=== PATIENT | female | born 1995 | race Asian ===

== ENCOUNTER 2017-08-01 16:06 | Inpatient (IN) | payer BC ==
[2017-08-01 16:55] LABS: ABS Basophils 0.1 10^3/ul (0-0.2); ABS Eosinophils 0.2 10^3/ul (0-0.6); ABS Lymphocytes 2.8 10^3/ul (1.0-4.8); ABS Monocytes 0.5 10^3/ul (0-0.8); ABS Neutrophils 3.8 10^3/ul (1.5-7.7); ABS Nucleated RBC 0 10^3/ul; Eosinophil % 2.1 % (0-6); Hematocrit 41 % (35-47); Hemoglobin 14.2 g/dl (12.0-16.0); Mean Corpuscular HGB Conc 34 g/dl (31-36); Mean Corpuscular Hemoglobin 30 pg (27-31); Mean Corpuscular Volume 86 fL (80-97); Mean Platelet Volume 9.6 um3 (7.4-10.4); Nucleated Red Blood Cells % 0.1; Platelet Count 233 10^3/ul (150-450); Red Blood Count 4.81 10^6/ul (4.0-5.4); Red Cell Distribution Width 13 % (10.5-15); White Blood Count 7.3 10^3/ul (3.5-10.8)
[2017-08-01 17:06] LABS: Urine Appearance Clear; Urine Blood Negative (Negative); Urine Color Yellow; Urine Ketones Negative (Negative); Urine Protein Negative (Negative); Urine Specific Gravity 1.019 (1.010-1.030); Urine Urobilinogen Negative (Negative)
[2017-08-01 17:13] LABS: EGFR Non-African American 76.3 (>60)
--- NOTE | 2017-08-01 21:41 | ED ---
Ania Foster Thomas, scribed for Marcial Vera MD on 08/01/17 at 1631 . Psychiatric Complaint - HPI Summary HPI Summary: The patient is a 22 year old female who is brought in by [place] police 941 after she expressed suicidal ideation with a plan to her counselor. She attempted to hang herself with a belt. She complains of depression. - History Of Current Complaint Chief Complaint: EDMentalHealth Time Seen by Provider: 08/01/17 16:15 Hx Obtained From: Patient Onset/Duration: Still Present Timing: Constant Character: Depressed Aggravating Factor(s): Nothing Alleviating Factor(s): Medication Has Suicidal: Reports: Thoughts, With A Plan - Allergies/Home Medications Allergies/Adverse Reactions: Allergies Allergy/AdvReac Type Severity Reaction Status Date / Time No Known Allergies Allergy Verified 08/01/17 16:11 Home Medications: Home Medications NK [No Home Medications Reported] 08/01/17 [History Confirmed 08/01/17] PMH/Surg Hx/FS Hx/Imm Hx Sensory History: Denies: Hx Legally Blind Psychiatric History: Reports: Hx Anxiety, Hx Depression Infectious Disease History: No Infectious Disease History: Denies: Traveled Outside the [place] in Last 30 Days - Family History Known Family History: Positive: Other - Patient denies relevant FHx - Social History Alcohol Use: None Substance Use Type: Reports: None Smoking Status (MU): Never Smoked Tobacco Review of Systems Negative: Fever Positive: Other - SI, depression All Other Systems Reviewed And Are Negative: Yes Physical Exam - Summary Physical Exam Summary: General: well-appearing, no pain distress Skin: warm, color reflects adequate perfusion, dry Head: normal Eyes: EOMI, TUNDE ENT: normal Neck: supple, nontender Respiratory: CTA, breath sounds present Cardiovascular: RRR Abdomen: soft, nontender Bowel: present Musculoskeletal: normal, strength/ROM intact Neurological: normal, sensory/motor intact, A&O x3 Psychological: affect/mood appropriate Triage Information Reviewed: Yes Vital Signs On Initial Exam: Initial Vitals Temp Pulse Resp BP Pulse Ox 98.7 F 67 16 155/93 95 08/01/17 16:09 08/01/17 16:09 08/01/17 16:09 08/01/17 16:09 08/01/17 16:09 Vital Signs Reviewed: Yes Diagnostics - Vital Signs Vital Signs Temp Pulse Resp BP Pulse Ox 08/01/17 16:09 98.7 F 67 16 155/93 95 - Laboratory Result Diagrams: 08/01/17 16:47 08/01/17 16:47 Lab Statement: Any lab studies that have been ordered have been reviewed, and results considered in the medical decision making process. Course/Dx - Course Assessment/Plan: MHE and disposition are pending at shift change. Patient is signed out to Dr. Delgadillo. - Differential Dx/Clinical Impression Provider Diagnosis: Mental health problem Discharge - Sign-Out/Discharge Documenting (check all that apply): Sign-Out Patient Signing out patient TO: Anmol Delgadillo - Discharge Plan Condition: Stable Disposition: [facility]YCHIATRIC FACILITY-[facility] [place] The documentation as recorded by the Ania dougherty Thomas accurately reflects the service I personally performed and the decisions made by me, Marcial Vera MD.
--- NOTE | 2017-08-02 08:08 | PN ---
ED Flex Patient Progress Note Subjective: This is a 22 year-old F who is pending psychiatric EVAL secondary to ____SI w/ attempt to hang herself . Pt offers no complaints at this time. Objective: Vitals: Most recent vital signs documented below. General NAD, Alert and oriented x3. HEENT: no signs of ecchymosis about neck Heart: rrr S1,S2 Lungs: CTA, BREATHING EASILY, no stridor Ab: soft, NTTP, + BS Assessment: Suicide attempt Plan: Pending psychiatric eval. will follow up daily _ while in ED____. Vital Signs Temp Pulse Resp BP Pulse Ox 98.0 F 74 16 128/87 99 08/02/17 06:32 08/02/17 06:32 08/02/17 06:32 08/02/17 06:32 08/02/17 06:32 Lab Results - Entire Visit 08/01/17 08/01/17 08/01/17 16:52 16:52 16:47 WBC RBC Hgb Hct MCV MCH MCHC RDW Plt Count MPV Neut % (Auto) Lymph % (Auto) [place] % (Auto) Eos % (Auto) Baso % (Auto) Absolute Neuts (auto) Absolute Lymphs (auto) Absolute Monos (auto) Absolute Eos (auto) Absolute Basos (auto) Absolute Nucleated RBC Nucleated RBC % Sodium 140 Potassium 4.2 Chloride 105 Carbon Dioxide 27 Anion Gap 8 BUN 13 Creatinine 0.92 Est GFR ( Amer) 98.2 Est GFR (Non-Af Amer) 76.3 BUN/Creatinine Ratio 14.1 Glucose 95 Calcium 9.2 Total Bilirubin 0.80 AST 16 ALT 14 Alkaline Phosphatase 65 Total Protein 6.9 Albumin 4.0 Globulin 2.9 Albumin/Globulin Ratio 1.4 TSH 2.67 Urine Color Yellow Urine Appearance Clear Urine pH 5.0 Ur Specific [place] 1.019 Urine Protein Negative Urine Ketones Negative Urine Blood Negative Urine Nitrate Negative Urine Bilirubin Negative Urine Urobilinogen Negative Ur Leukocyte Esterase Negative Urine Glucose Negative Salicylates < 2.50 Urine Opiates Screen None detected Acetaminophen < 15 Ur Barbiturates Screen None detected Ur Phencyclidine Scrn None detected Ur Amphetamines Screen None detected U Benzodiazepines Scrn None detected Urine Cocaine Screen None detected U Cannabinoids Screen Presumptive positive A Serum Alcohol < 10 08/01/17 16:47 WBC 7.3 RBC 4.81 Hgb 14.2 Hct 41 MCV 86 MCH 30 MCHC 34 RDW 13 Plt Count 233 MPV 9.6 Neut % (Auto) 52.0 Lymph % (Auto) 39.0 [place] % (Auto) 6.2 Eos % (Auto) 2.1 Baso % (Auto) 0.7 Absolute Neuts (auto) 3.8 Absolute Lymphs (auto) 2.8 Absolute Monos (auto) 0.5 Absolute Eos (auto) 0.2 Absolute Basos (auto) 0.1 Absolute Nucleated RBC 0 Nucleated RBC % 0.1 Sodium Potassium Chloride Carbon Dioxide Anion Gap BUN Creatinine Est GFR ( Amer) Est GFR (Non-Af Amer) BUN/Creatinine Ratio Glucose Calcium Total Bilirubin AST ALT Alkaline Phosphatase Total Protein Albumin Globulin Albumin/Globulin Ratio TSH Urine Color Urine Appearance Urine pH Ur Specific [place] Urine Protein Urine Ketones Urine Blood Urine Nitrate Urine Bilirubin Urine Urobilinogen Ur Leukocyte Esterase Urine Glucose Salicylates Urine Opiates Screen Acetaminophen Ur Barbiturates Screen Ur Phencyclidine Scrn Ur Amphetamines Screen U Benzodiazepines Scrn Urine Cocaine Screen U Cannabinoids Screen Serum Alcohol
[2017-08-02] MEDS ORDERED: Al Hydrox/Mg Hydrox/Simet LIQ* 30 ML UDC PO PRN (15:11)
[2017-08-02] MEDS ORDERED: Acetaminophen TAB* 325 MG PO PRN (15:11)
--- NOTE | 2017-08-02 15:52 | ED ---
Nathalie Foster Gabriel, scribed for Alex Vallejo MD on 08/02/17 at 1148 . Progress - Progress Note Progress Note: The patient was signed out from Dr. Delgadillo awaiting MHE. After MHE by Dr. oKhli the patient will be a voluntary admit. - Consult/PCP Time Called: 16:46 Course/Dx - Course Course Of Treatment: The patient was signed out from Dr. Delgadillo awaiting MHE. After MHE the patient will be a voluntary admit. - Diagnoses Provider Diagnoses: Suicidal ideation, Unspecified episodic mood disorder Discharge - Sign-Out/Discharge Documenting (check all that apply): Discharge/Admit/Transfer, Receiving Sign-Out Receiving patient FROM: Anmol Delgadillo - Discharge Plan Condition: Stable [place] [place] The documentation as recorded by the Nathalie dougherty Gabriel accurately reflects the service I personally performed and the decisions made by Genevieve isaacs Kirk, MD.
[2017-08-03] MEDS: Vitamin THERAPEUTIC TAB PO SCH (10:12)
[2017-08-03] MEDS: Venlafaxine EXT RELEASE CAP* 37.5 MG PO SCH (14:28)
--- NOTE | 2017-08-03 22:06 | HP ---
HISTORY AND PHYSICAL: DATE OF ADMISSION: 08/02/17 SUPERVISING PSYCHIATRIST: Dr. Jimy Kohli.* (DICTATED BY CASEY CURRIE NP) JUSTIFICATION FOR ADMISSION: The patient met with her [employer] therapist and agreed to be transported to the ED due to suicidal ideation and plan to jump off of a bridge. The patient has history of suicide attempts and has high lethality risk. She merits hospitalization for immediate safety and stabilization. CHIEF COMPLAINT: "Overall, this is a not good semester." HISTORY OF PRESENT ILLNESS: The patient is a 22-year-old Romanian Slovak female and a senior at [employer]. She presented to the emergency department on 08/01/17 after an appointment with her therapist at [facility] due to significant suicidal ideation and a plan. Our unit was full at this time. The patient remained in the emergency department while awaiting an available bed. She was admitted and transported to the Adult BSU on the afternoon of 08/02/17. The patient is originally from [place], [place] and has been a student of [employer] for the last four years. She prefers to go by "Erial." She is a senior and studying in classic languages. She is expected to graduate this month, but is unsure if she is going to pass calculus which she needs for math credit. She states this semester she has had difficulty attending classes due to depressive symptoms. She endorses decreased energy, anhedonia, hypersomnia, and isolation. She also endorses excessive guilt and avoidance in the context of anxiety. She states that she is often afraid of rejection or failure and therefore, she does not engage. For example, she did not applied to a graduate school because she watched her friends with this process and did not want to put herself in that position. She states that this was true for her while she was in high school as well. She did not want to go college. She states she was not expecting to see her 18th birthday and did have an overdose attempt on Tylenol around that time. She states she started vomiting and went to an Urgent Care, but did not tell anybody that that was a suicide attempt and therefore did not receive any mental health services. She identifies 3 suicide attempts since then, twice in her sophomore year at [employer]. She walked to a bridge and then turned around and went home because she was worried and wanted to finish an assignment that was due. While in [place], she thought of jumping in front of a train, but did not do so because she was with a large group of people. Last month, she attempted to hang herself in her dorm room. The patient also reports self injurious behavior via cutting intermittently over the last 5 years. She states the last time she did so was 3 weeks ago. She identifies that she gets relief from stress when she cuts. The patient states that she never wanted to see her 22nd birthday. She explains that this due to having a graduate college and being expected to be "an adult." The patient identifies depressive symptoms since last October but worsening since the onset of this semester. She identifies she is anxious about what to do after graduation. She wants to take a year or two as a gap year, possibly work abroad or volunteer. She states she has a friend whose father works with an [employer] and is considering working for them. The patient denies AV hallucinations. She denies depersonalization. She reports she is superstitious and explains that her right eye has been twitching recently and that in Romanian culture, the right eye is bad luck, but the left eye is good luck. She states that she is an obsessive person when it comes to cleaning and nobody else cleans as well as she does. She denies any other phobias, rituals, or compulsions. The patient denies current eating disorders. She report a history of binge eating approximately 4 years ago. PAST PSYCHIATRIC HISTORY: The patient denies previous psychiatric hospitalization. She has been seeing Rocio Sousa for the past 3 years at [facility]. She also sees psychiatrist, Dr. Shakira Estrada. She denies previous medications other than ones that she is currently prescribed, Lexapro and Wellbutrin. The patient denies history of trauma or abuse. She reports her maternal uncle suddenly related to cancer, but this is more traumatic for her mother and other family members than it was for her. PAST MEDICAL HISTORY: Healthy. The patient denies head injury or seizures. She denies a history of surgeries. ALLERGIES: No known drug allergies. Height 5 feet 4 inches. Weight 204. LMP was the end of May. She reports she historically has regular menses. Denies concern for STIs or . She reports engaging in consensual sexual activity last in November. PRIMARY CARE PROVIDER: [facility]. CURRENT MEDICATIONS: 1. Lexapro 20 mg. 2. Wellbutrin XL 150 mg daily. The patient states she stopped taking this approximately around May due to interrupted sleep, running out of the medicine and not wanting to call and ask for a refill. FAMILY PSYCHIATRIC HISTORY: The patient denies formal diagnosis. She thinks that her father may suffer from depression. Her maternal grandfather suicided when her mother was 5 years old. SOCIAL HISTORY: The patient is the only child of parents of Romanian descent. She is originally from [place], [place] and has been attending [employer] for the past 4 years. She lives alone in a single room. She identifies as heterosexual and is not currently dating. She reports having close friends and is engaged in a few clubs, primarily quiz bowl and classics clubs. She reports liking various television and YouTube shows. She plays fantasy video games such as [employer] and [employer]. The patient reports alcohol use approximately 2 drinks at a time. She reports occasional marijuana use and the last use was last week. She denies tobacco use or other substances. REVIEW OF SYSTEMS: Constitutional: Negative. No fever, chills, or fatigue. ENT: Negative. Cardiovascular: Negative. Denies chest pains or palpitations. Respiratory: Negative. Denies shortness of breath or cough. Genitourinary: Negative. Musculoskeletal: Negative. Neurologic: Negative. PHYSICAL EXAMINATION GENERAL: The patient is well appearing, well nourished. VITAL SIGNS: T 98.2, P 74, respiration rate 16, O2 saturation 99%, BP 124/80. HEENT: Head and face: Normal head and face inspection. The patient is wearing corrective eye glasses. Eyes: Positive EOMI. PERRL. Conjunctivae clear. NECK: Supple. Full ROM. Trachea midline. RESPIRATORY: Lung sounds clear to auscultation, breath sounds present. CARDIOVASCULAR: Heart RRR. Pulses are symmetrical in both upper and lower extremities. MUSCULOSKELETAL: Normal strength, ROM intact. NEUROLOGIC: Normal. Sensory and motor intact. Alert, oriented x3 and normal gait. Cerebellar function intact. Skin: Warm, dry. Color reflects adequate perfusion. MENTAL STATUS EXAM: The patient is a 22-year-old Romanian-Slovak female, who appears stated age. She is adequately groomed. Her ADLs are completed. She is wearing T-shirt and shorts and sits on the bed with an erect posture. She is cooperative and answers questions fully. She appears to be a good historian. She is alert and oriented x3. Concentration is good. Her memory is 3/3. Her mood is dysphoric. Her affect is incongruent with a nervous smile at times. Speech is soft and articulate. Thought process circumstantial in regards to current stressors and content of thought is significant for suicidal ideation and passive wish. Insight and judgment are poor. Fund of knowledge is excellent. LABORATORY DATA: CBC within normal limits. CMP within normal limits. Hemoglobin A1c is 5.6. Triglycerides high at 444. Cholesterol 216. TSH 2.67. Urinalysis within normal limits. Toxicology negative for salicylates, acetaminophen or alcohol. Urine drug screen positive for cannabinoids, which is consistent with patient report. DIAGNOSIS: Major depressive disorder. ASSESSMENT: Katelyn, who prefers to go by Erial, is a 22-year-old female [employer] senior. This is her first psychiatric hospitalization, although she has had multiple suicide attempts. She reports significant stressor of graduating [employer]. She is unsure if she will pass calculus and is even more so unsure about what she will do after graduation. 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 She mentions that her outpatient psychiatrist has discussed switching medications; however, she has not been compliant with current regimen. PLAN: The patient is admitted to adult behavioral services unit on voluntary status. Code status is full. She is placed on 15-minute checks for safety. The patient was encouraged to participate in supportive milieu, individual sessions with staff and psychoeducational groups. We will obtain an MMPI for diagnostic clarification. The patient is agreeable to start venlafaxine 37.5 mg. We will monitor for mood and thought content. Estimated length of stay is 5 to 7 days. Discharge plan will include family involvement, outpatient providers per patient consent. CASEY CURRIE, FRANKY [id number]/[facility] #: [id number] [place]
[2017-08-04] MEDS: Vitamin THERAPEUTIC TAB PO SCH (09:28)
[2017-08-04] MEDS: Venlafaxine EXT RELEASE CAP* 37.5 MG PO SCH (09:28)
--- NOTE | 2017-08-04 16:29 | PN ---
Subjective - Subjective Date of Service: 08/04/17 Service Type: 31124 Hosp care 15 min low complexity Subjective: Patient reports mildly improved mood. She states she has spoken with her mother and received emotional support. She states she told her mother that she would like her father to call but he has not done so yet. Patient reports relief due to speaking with [facility] blogs manager and her Igor. She states that she will be able to graduate. Patient states she is ambivalent about plans after graduation. Objective - Appearance Appearance: Well Developed/Nourished Dysmorphic Features: Yes Hygiene: Normal Grooming: Fairly Well Kept - Behavior Psychomotor Activities: Normal Exhibits Abnormal Movement: No - Attitude and Relatedness Attitude and Relatedness: Cooperative Eye Contact: Fair - Speech Quality: Unpressured Latencies: Normal Quantity: Appropriate - Mood Patient's Decription of Mood: "Okay" - Affect Observed Affect: Depressed - anxious smile at times - Thought Process Patient's Thought Process: Circumstantial, Impoverished Thought Content: Yes Passive Wish, Yes Suicidal Planning, No Homicidal Ideation, No Paranoid Ideation - Sensorium Experiencing Hallucinations: No, Sensorium is Clear Type of Hallucinations: Visual: No, Auditory: No, Command: No - Level of Consciousness Level of Consciousness: Alert Orientation: Yes Intact, Yes Orientated to Time, Yes Orientated to Place, Yes Orientated to Person - Impulse Control Impulse Control: Tenuous - Insight and Judgement Insight and Judgement: Poor - Group Participation Particating in Group Activities: Yes - Medication Management Medication Management Adherence: Yes Assessment - Assessment Merits Inpatient Hospitalization: For Immediate Safety, For Stabilization, Pending Safe DC Plan Inpatient DSM-V Dx: F33.1 Clinical Impression: 22yo yoruba-vincentian female, senior at [employer] who presented to ED after appt at therapist. Patient endorses suicidal ideation with recent failed suicide attempt. She merits hospitalization for immediate safety and stabilization. Plan - Plan Treatment Plan: Name: LYDIA AZUL Birthdate: 1995 [id number] continue acute intensive psychiatric treatment. decrease to q30min observation and allow computer/staff pass. increase effexor XR to 75mg qam. discharge planning to include parents and outpatient providers. Continued Medication Management: Different Medication Medications: Current Medications Acetaminophen (Tylenol Tab*) 650 mg PO Q4H PRN PRN Reason: PAIN or TEMP > 101 F Last Admin: 08/03/17 10:12 Dose: 650 mg Al Hydrox/Mg Hydrox/Simethicone (Maalox Plus*) 30 ml PO Q4H PRN PRN Reason: INDIGESTION Multivitamins (Theragran Tab*) 1 tab PO DAILY [facility] Last Admin: 08/04/17 09:28 Dose: 1 tab Venlafaxine HCl (Effexor Xr Cap*) 37.5 mg PO DAILY [facility] Last Admin: 08/04/17 09:28 Dose: 37.5 mg - Discharge Plan Discharge Plan: Outpatient Follow Up Outpatient Program: Counseling/Psych Services at [facility]
--- NOTE | 2017-08-05 07:56 | PN ---
MHU: Group Therapy Note - Service Type Service Type: [id number] Group Psychotherapy - Medication Education Group: Patient was attentive and participatory in group, and remained in good behavioral control. Patient expressed positive insights regarding relevant treatment interventions. Patient stated understanding of material discussed and had appropriate questions.
[2017-08-05] MEDS: Venlafaxine EXT RELEASE CAP* 75 MG PO SCH (09:21)
[2017-08-05] MEDS: Vitamin THERAPEUTIC TAB PO SCH (09:21)
--- NOTE | 2017-08-05 18:09 | PN ---
Subjective - Subjective Service Type: 68620 Hosp care 25 min moderate complexity Subjective: Patient reports improved energy, thought processes and motivation. She reports sleeping "ok" last night. She expresses benefitting from socialization on unit. She states she spoke with her father last evening and felt supported. Her parents are expected to fly to [place] on august 13 for her graduation. Intelligence Manager encouraged patient to utilize computer over the weekend for academic needs. Objective - Appearance Appearance: Well Developed/Nourished Dysmorphic Features: Yes Hygiene: Normal Grooming: Well Kept - Behavior Psychomotor Activities: Normal Exhibits Abnormal Movement: No - Attitude and Relatedness Attitude and Relatedness: Cooperative Eye Contact: Fair - Speech Quality: Unpressured Latencies: Normal Quantity: Terse - Mood Patient's Decription of Mood: "between silly and happy" - Affect Observed Affect: Fair Affect Consistent with: Dysphoria - Thought Process Patient's Thought Process: Circumstantial, Impoverished Thought Content: No Passive Wish, No Suicidal Planning, No Homicidal Ideation, No Paranoid Ideation - Sensorium Experiencing Hallucinations: No, Sensorium is Clear Type of Hallucinations: Visual: No, Auditory: No, Command: No - Level of Consciousness Level of Consciousness: Alert Orientation: Yes Intact, Yes Orientated to Time, Yes Orientated to Place, Yes Orientated to Person - Impulse Control Impulse Control: Poor - Insight and Judgement Insight and Judgement: Fair - Group Participation Particating in Group Activities: Yes - Medication Management Medication Management Adherence: Yes Assessment - Assessment Merits Inpatient Hospitalization: For Immediate Safety, For Stabilization, Consolidate Improvements, Pending Safe DC Plan Inpatient DSM-V Dx: F33.1 Clinical Impression: 22yo kiswahili-filipino female, senior at [employer] who presented to ED after appt at therapist. Patient endorses suicidal ideation with recent failed suicide attempt. She merits hospitalization for immediate safety and stabilization. Plan - Plan Treatment Plan: Name: LYDIA AZUL Birthdate: 1995 [id number] continue acute intensive psychiatric treatment. decrease to q30min observation and allow computer/staff pass. continue effexor XR 75mg qam. discharge planning to include parents and outpatient providers. Medications: Current Medications Acetaminophen (Tylenol Tab*) 650 mg PO Q4H PRN PRN Reason: PAIN or TEMP > 101 F Last Admin: 08/03/17 10:12 Dose: 650 mg Al Hydrox/Mg Hydrox/Simethicone (Maalox Plus*) 30 ml PO Q4H PRN PRN Reason: INDIGESTION Multivitamins (Theragran Tab*) 1 tab PO DAILY [facility] Last Admin: 08/05/17 09:21 Dose: 1 tab Venlafaxine HCl (Effexor Xr Cap*) 75 mg PO DAILY [facility] Last Admin: 08/05/17 09:21 Dose: 75 mg
[2017-08-06] MEDS: Venlafaxine EXT RELEASE CAP* 75 MG PO SCH (10:19)
[2017-08-06] MEDS: Vitamin THERAPEUTIC TAB PO SCH (10:19)
[2017-08-07] MEDS: Venlafaxine EXT RELEASE CAP* 75 MG PO SCH (09:35)
[2017-08-07] MEDS: Vitamin THERAPEUTIC TAB PO SCH (09:35)
--- NOTE | 2017-08-07 17:49 | PN ---
Subjective - Subjective Date of Service: 08/07/17 Service Type: 40490 Hosp care 15 min low complexity Subjective: Patient was in the day room on phone for a long time and say she is feeling better and not suicidal today. Feels safe here. Tolerating her med well. Objective - Appearance Appearance: Healthy Appearing, Obese Dysmorphic Features: No Hygiene: Normal Grooming: Fairly Well Kept - Behavior Psychomotor Activities: Abnormal-Decreased Exhibits Abnormal Movement: No - Attitude and Relatedness Attitude and Relatedness: Cooperative Eye Contact: Good - Speech Quality: Unpressured Latencies: Normal Quantity: Appropriate - Mood Patient's Decription of Mood: "Good" - Affect Observed Affect: Non-labile Affect Consistent with: Dysphoria - Thought Process Patient's Thought Process: Coherent, Goal Directed Thought Content: No Passive Wish, No Suicidal Planning, No Homicidal Ideation, No Paranoid Ideation - Sensorium Experiencing Hallucinations: No, Sensorium is Clear Type of Hallucinations: Visual: No, Auditory: No, Command: No - Level of Consciousness Level of Consciousness: Alert Orientation: Yes Intact, Yes Orientated to Time, Yes Orientated to Place, Yes Orientated to Person - Impulse Control Impulse Control: Intact - Insight and Judgement Insight and Judgement: Good - Group Participation Particating in Group Activities: Yes - Medication Management Medication Management Adherence: Yes Assessment - Assessment Merits Inpatient Hospitalization: For Stabilization, Consolidate Improvements, For Discharge Planning Inpatient DSM-V Dx: F33.1 Clinical Impression: Doing well. Plan - Plan Treatment Plan: Name: LYDIA AZUL Birthdate: 1995 [id number] Continued Medication Management: Continue Outpt Medication Medications: Current Medications Acetaminophen (Tylenol Tab*) 650 mg PO Q4H PRN PRN Reason: PAIN or TEMP > 101 F Last Admin: 08/03/17 10:12 Dose: 650 mg Al Hydrox/Mg Hydrox/Simethicone (Maalox Plus*) 30 ml PO Q4H PRN PRN Reason: INDIGESTION Multivitamins (Theragran Tab*) 1 tab PO DAILY [facility] Last Admin: 08/07/17 09:35 Dose: 1 tab Venlafaxine HCl (Effexor Xr Cap*) 75 mg PO DAILY [facility] Last Admin: 08/07/17 09:35 Dose: 75 mg - Discharge Plan Discharge Plan: Outpatient Follow Up Outpatient Program: [facility] at [place]
[2017-08-08 08:15] VITALS: BP 125/79
[2017-08-08] MEDS: Venlafaxine EXT RELEASE CAP* 75 MG PO SCH (09:03)
[2017-08-08] MEDS: Vitamin THERAPEUTIC TAB PO SCH (09:03)
--- NOTE | 2017-08-08 22:02 | CONS ---
PSYCHOLOGICAL REPORT: DATE OF CONSULT: 08/08/17. REASON FOR REFERRAL: Katelyn, or "Aparna" as she prefers to go by, was hospitalized after experiencing encroaching depressive symptomatology that occurred in the context of academic pressures. Aparna expects to graduate in coming weeks having almost completed all the requirements at [employer] for degree in classic languages. She describes some continuing academic issues that she will be able to complete postgraduation apparently. Prior to admission , Aparna described difficulties with avoidant-type behaviors, experiencing a decrease in energy, anhedonia, hypersomnia, and increasing social and emotional isolation. She describes feeling somewhat frustrated with her difficulties as she was unable to complete honors thesis, which she had expected to finish. Aparna describes ambivalence in regards to graduation as she feels she will miss many of her friends who are going on to graduate school as she expects to return to her [place], [place], [place] to live with her parents this summer. BEHAVIORAL OBSERVATIONS: Aparna has been attentive and cooperative with groups and routines, and currently endorses reasonable recovery from depressogenic symptomatology. Although she describes apprehensions in regards to future narrative, she is describing positive events and looking forward to returning with her parents to [place]. She is hopeful of obtaining some employment before she begins to seriously contemplate what she wants to do next in terms of possible continuing education. Aparna currently presents with good affect that is spontaneously variable with discussion and she expresses prosocial interest and goals in a spontaneous fashion. She is especially looking forward seeing her friends before graduation and is hopeful she can enjoy few more weeks in [place] while the weather is nice. She describes her parents as supportive. Her mother works as a teacher and her father works as a cook. TEST RESULTS: Aparna provides somewhat distressed clinical profile on this administration of the MMPI-2. Although her validity scale indices are extremely elevated to an exaggerated degree, her clinical scales though well elevated and are not quite so exaggerated. Her emotional duress scales T- scores all fall above 90 with the FB scale quite pronounced at 120. Concomitantly, she has low scoring occurring on emotional coping and self- esteem. This validity scale profile is often common with persons who are in high levels of distress and who feel unable to cope with her current situations or problems. Aparna subsequently elevates the depression sub-scale and the anxiety index to a similar degree (equals 77) and also has elevated the psychopathic deviate and schizophrenia indices to T score of 80. She also elevates the hypomania scale in a range of T score equal to 70. Discussion with Aparna focussed on how she has endorsed high levels of cynical and pessimistic thoughts and feelings about her perceptions of other people and circumstances, which often is indicative of high endorsement particularly of depression and anxiety. This discussion resonated with Aparna, who describes feeling overwhelmed with academic stressors and her disappointment to successfully complete her honors thesis as well as other academic requirements in a timely fashion. Discussion looked for any characteristic signs or symptoms of hypomania. Aparna did not endorse any symptoms, which are felt to rise to concerns regarding manic or hypomanic process. College students will often elevate the psychopathic deviate and hypomania scale, which is apparent to here. Discussion addressed the importance of maintaining nonconformist attitudes and beliefs, and expressed having prosocial fashions rather than impulsive sociopathic tendencies. Aparna certainly does not impress as having any sociopathic tendencies other than that of being a college student. IMPRESSIONS AND RECOMMENDATIONS: Aparna impresses as having improved upon her presenting difficulties with depression quite significantly, and is quick to laugh at this point in time and engages well in discussion. Diagnostic impression supports depression, NOS with continued to rule out any hypomanic experience. This latter assertion impresses as unlikely, however. Discussion with Aparna has focussed on change in transition and in continuing to engage in mental health service as an outpatient both while she remains in [place] as well as when she returns to her [place], [place], [place]. [id number]/[facility] #: [id number] [place]
--- NOTE | 2017-08-10 02:53 | DS ---
CC: [facility]; Dr. Gosia Estrada; Dr. Diop, [place], [place] * DISCHARGE SUMMARY: DATE OF ADMISSION: 08/02/17 DATE OF DISCHARGE: 08/08/17 SUPERVISING PHYSICIAN: Jimy Kohli MD * (DICTATED BY CASEY CURRIE NP) DISCHARGE DIAGNOSIS: Major depressive disorder. CONDITION AT THE TIME OF DISCHARGE: Improved. The patient is euthymic with bright affect. She denies suicidal ideation. She reports improved energy, thought processes, and motivation. She expresses relief since admission due to coordinating with her panchito and [facility] manager perioperative about upcoming graduation. The patient is agreeable to follow up with [facility] this week and pursue outpatient care in [place], [place]. She reports seeing a therapist last summer, who she is willing return to and her family doctor for medication management. The patient's [facility] providers and her mother were involved in the discharge planning as well. MENTAL STATUS EXAM: The patient is a 22-year-old [place] Cym[place] female, who appears stated age. She is adequately groomed. She is wearing her own clothing and dressed casually in a gown. She is wearing large eye glasses and her ADLs are completed. She is cooperative and answers questions fully. She is alert and oriented x3. Eye contact is good. Her speech is soft and articulate. Concentration is good. Memory is 3/3. Her mood is euthymic and affect has full range. Thought process is linear and goal directed and thought content is negative for suicidal ideation or passive wish. Insight and judgment are good. Fund of knowledge is excellent. DISCHARGE INSTRUCTIONS GIVEN TO THE PATIENT: A. Medications: She will continue on venlafaxine 75 mg p.o. daily. A 2-week supply was electronically prescribed through [facility]. B. Diet: Low cholesterol. C. Activity: Ambulation as tolerated. Tobacco cessation is not applicable. There are no studies pending at the time of discharge. D. Followup care: The patient will follow up at [facility] with Jess Foster directly after discharge and she has an appointment with her therapist, Dr. Estrada, on 08/12/17 at 1 p.m. When the patient returns to [place], she has an appointment with her family doctor, Dr. Diop, on Tuesday, , at 11:30 a.m. E. Substance abuse followup: The patient declines offer of referral for substance use treatment and there is no FDA approved medication for cannabis use. HOSPITAL COURSE: Part A: Reason for admission: The patient presented to the emergency department on 08/01/17, after an appointment with her therapist at [facility]. The patient expressed significant suicidal ideation with a plan and a suicide attempt 1 month ago. She attempted to hang herself, but it "didn't work" and she did not disclose this to anyone. The patient remained in the emergency department while awaiting an available bed and was admitted to the Adult [facility] on the afternoon of 08/02/17. Part B: Psychiatric treatment rendered: The patient was admitted to Adult [facility] on voluntary status. Code status was full. She was placed on 15-minute checks for her own safety. This was eventually decreased to 30-minute checks and she was allowed computer privilege and staff pass. She completed an MMPI. Please see report by psychologist, Dr. Martin Bobo. Laboratory data: CBC within normal limits. CMP within normal limits. Hemoglobin A1c 5.6. Triglycerides high at 444, cholesterol 216. TSH was normal at 2.67. Urinalysis was within normal limits. Toxicology positive for cannabinoids, which was consistent with the patient's report. The patient was notified of above lipid panel and A1c. The patient was calm and in behavioral control. She was safe on all checks. There was a vague SI without a plan. She participated fully in psychiatric interview. She endorsed significant persons with neurovegetative symptoms. She stated that she had stopped taking bupropion 2 months prior due to concern of insomnia. Also, the patient has run out of the medication and had little motivation to call in a prescription. She was agreeable to discontinue the SSRI that she was currently taking and changed to SNRI, venlafaxine, which was titrated to 75 mg. The patient it tolerated well. Over the course of admission , she reported decreased lethargy, improved cognition and motivation. She was interactive and social with peers. She reported much hope with stressors in regards to completing semester and graduating from the [employer]. The patient also reported concern that her parents would not be supportive in regards to mental health. With prompting, the patient was able to express some of her concerns to her parents and reported that they were emotionally supportive. This typewriter mechanic spoke with her mother and provided psychoeducation on depressive symptoms and treatment planning. We discussed family sessions and therapy if the patient is willing to do so. On day of discharge, the patient reported readiness for discharge. She expressed concerns for worsening situation if admission continued. She denied suicidal ideation and passive wish. She was able to exhibit evidence of forward thinking. We discussed safety planning and aftercare. Due to obligation to treat in a less restrictive setting, discharge was agreed upon by treatment team. This typewriter mechanic spoke with her outpatient psychiatrist, who requested some assistance in coordinating aftercare in [place] for the patient, as she will be moving back after graduation. The patient reported having seen a therapist last summer, who she is willing to go to back to, and this typewriter mechanic obtained an appointment with her family doctor for continued medication management. CASEY CURRIE NP [id number]/[facility] #: [id number] [facility]
== END 2017-08-08 15:20 | disposition home or self-care (01) | DRG 751 ==
LOC: ED 16:06 → BSU 08-02 13:51 → UNDOADMIN 08-02 13:51
PROVIDERS: ADMIT Psychiatry & Neurology Psychiatry; ATTEND Psychiatry & Neurology Psychiatry
DX: F33.1 Major depressive disorder, recurrent, moderate (principal); R45.851 Suicidal ideations; Z79.899 Other long term (current) drug therapy; Z81.8 Family history of other mental and behavioral disorders
CPT/HCPCS: 36415; 80053; 80061; 80307; 80320; 80329; 81003; 83036; 83721; 84443; 85025; 90853; 96102; 99222; 99231; 99232; 99238; 99284; A9270-GY; G0480